=== PATIENT | male | born 1940 | race African-American/Black ===

== ENCOUNTER → 2019-01-11 | Outpatient (CLI) | payer OTHER ==
[~2019-01-11] VITALS: Ht 180.3 cm; Wt 70.3 kg
[~2019-01-11] MED LIST: ASPIR 8181 MG PO; IMDUR 30 MG TAB30 M1 PO; LIPITOR40 MG PO; SILDENAFIL CIT100 MG PO
--- NOTE | ~2019-01-11 | H ---
[facility] [place] [address] HISTORY AND PHYSICAL Name: AVILA SANTIAGO Room #: REG [facility]#: [id number] Admission: 01/11/19 ������������������ Attend Phys: Lavon Smith Discharge: ������������������ Date of : 44 Report #: [id number] THIS REPORT FOR: //name// CC: FAM unknown Lavon Smith DATE OF SERVICE: 01/11/2019 HISTORY OF PRESENT ILLNESS: This is a 78-year-old gentleman who has had chest discomfort for several years. The patient states the discomfort has progressed consistently over the last years and has gotten to the point where minimal activity brings it on. He has no rest symptomatology routinely, but over the last week, he has noted that he has had some discomfort that occurs at rest. He stated that while waiting in the office to be seen, he had some chest discomfort, but did not comment anybody. He remarks having had a low risk stress test approximately 8 years ago, but an abnormal calcium score around that time. He has not had any subsequent assessment of his chest discomfort. He describes it as retrosternal, sharp sensation initially, but it becomes a dull ache, lasting up to 20-30 minutes. It is associated with diaphoresis and dyspnea, but no nausea. He states it is brought on with activity and even on a flat level. Does not wake him up from sleep. He has no GI symptomatology with this. PHYSICAL EXAMINATION: GENERAL: Well-developed, well-nourished male, resting comfortably, in no acute distress. VITAL SIGNS: Noted and reviewed in the chart. HEENT: Normocephalic, atraumatic. Pupils are equal, round, reactive to light and accommodation. Extraocular muscles are intact. Sclerae and conjunctivae are anicteric. NECK: JVD is normal. Carotid upstrokes are bilaterally symmetrical. No bruits are heard. No thyromegaly. No lymphadenopathy. LUNGS: Clear to auscultation. No wheezes, rhonchi or crackles. No CVA tenderness. CARDIAC: Demonstrates a regular rhythm. Normal first and second heart sounds. No ventricular or atrial gallops, no rubs noted. No murmurs. No lifts or heaves, PMI normal. ABDOMEN: Soft, nontender, nondistended. Normal bowel sounds. EXTREMITIES: Without cyanosis, clubbing or edema. Distal pulses are intact. DTR symmetrical. NEUROLOGIC: Cranial nerves 2-12 are grossly normal and symmetrical. PSYCHIATRIC: Alert, oriented with normal affect. SKIN: Warm and dry. IMPRESSION: 1. Chest pain consistent with unstable angina and class 4 symptomatology. In view of his risk factors, abnormal calcium score, [place] [address] HISTORY AND PHYSICAL Name: PAMELAAVILA Britton Room #: YUSEF Walker#: [id number] Admission: 01/11/19 ������������������ Attend Phys: Lavon Smith Discharge: ������������������ Date of : 44 Report #: [id number] versus invasive approach. The patient is quite concerned with these episodes and wishes definitive diagnosis. In view of this, cardiac catheterization is scheduled. The risks, complications and alternatives to cardiac catheterization, conscious sedation, percutaneous revascularization been discussed with the patient. He voices understanding and wishes to proceed. ��������������������������������������������� ���������������������������������������� By: ��������������������������������������������� 0932 0950 Lavon Smith MD /nt
[2019-01-11 08:58] LABS: HEMATOCRIT 42.3 % (42.0-52.0); HEMOGLOBIN 13.9 gm/dL (14.0-18.0); MCH 29.6 pg (26.0-34.0); MCHC 32.9 g/dL (28.0-37.0); RBC 4.7 mil/uL (4.50-6.00); RDW 13.6 % (10.5-14.5); WBC 3.4 thou/uL (4.0-11.0)
[2019-01-11 09:10] VITALS: BP 135/82
[2019-01-11 10:20] LABS: POC CA IONIZED 4.6 mg/dL (4.5-5.3); POC CREATININE 0.9 mg/dL (0.6-1.3); POC HEMOGLOBIN 13.6 g/dL (14.0-18.0); POC POTASSIUM 4.2 mmol/L (3.5-5.1)
--- NOTE | 2019-01-11 13:09 | CATHLAB ---
[facility] [address] [place] [address] INVASIVE PROCEDURE REPORT Name: AVILA SANTIAGO [facility]: [facility] [id number] ������������� Admission: 01/11/19 ������������� Attend Phys: Lavon Gates Discharge: ��� ������������� ��� Date of : 44 �������������������� �� Report #: [id number] �������� ��������������������������������������������[id number] THIS REPORT FOR: //name// APPROVED REPORT Study performed: 01/11/2019 09:34:19 Patient Details Patient Status: Out-Patient Room #: The patient is a 78 year-old male Event Personnel Lavon Smith Digital Program Manager, Yoandy Briscoe RN, Tristan Darden RTR Scrub, Sofia Dorantes RTR Scrub, Chandra Matos RTR Monitor, Rozina Barajas RTR, DIALYSIS CHIEF EQUIPMENT TECHNICIAN Monitor Procedures Performed Art Access - R femoral artery* Left Heart Cath w/or w/o Coronaries [id number] [facility] [id number] Initial Mod Sed Same Phys/QHP Gr5y [id number] [id number] Mod Sed Same Phys/QHP Ea [id number] Hemostasis with Manual pressure, supervision of conscious sedation Indication Chest pain Procedure Narrative The was infiltrated with 1% Lidocaine subcutaneous anesthesia. A PINNACLE 4FR Sheath #[id number] sheath was inserted into the RFA^. Coronary angiography was performed using coronary diagnostic catheters. The right coronary system was accessed and visualized with a JR4 catheter. The left coronary system was accessed and visualized with a JL4 catheter. The left ventricle was accessed and visualized with a pigtail catheter. Left ventriculogram was performed in 30 degree projection. Hemostasis was obtained with manual pressure following sheath removal without any complications. The patient tolerated the procedure well and there were no complications associated with the procedure. There was no hematoma. Intraoperative Conscious Sedation Sedation start time: 10:04 Case end Time: 10:25 Versed 2 mg Fluoro Time: 3.04 minutes Dose: DAP 2543.10 cGycm2 363 mGy [facility] [place] [address] INVASIVE PROCEDURE REPORT Name: AVILA SANTIAGO Room #: REG [facility]#: [id number] ������������� Admission: 01/11/19 ������������� Attend Phys: aLvon Gates Discharge: ��� ������������� ��� Date of : 44 �������������������� �� Report #: [id number] �������� ��������������������������������������������[id number] Contrast Type and Amount: Omnipaque 70 ml Coronary Angiography The patient's coronary anatomy is right dominant. Diagnostic Cath Left Main Normal origin moderate caliber with mild luminal irregularities noted. Bifurcates left anterior descending left circumflex free of high-grade disease LAD Moderate caliber type III vessel which courses in the anterior interventricular sulcus. First diagonal branch arises just mild to moderate luminal irregularities through its course on the anterolateral wall. Is small in size. The LAD continues on with his irregularities of under 30-40% until the distal third with this and eccentric region of approximately 50-60%. The vessel diameter in this region appears to be less than 1.5 mm. Then continues posteriorly terminating posterior aspect of the left ventricle Diagonal 1 Small-caliber vessel with moderate lesions noted Circumflex Part caliber vessel which gives rise to an early marginal branches as luminal irregularities of less than 30-40% as it courses along the lateral aspect of the heart. The circumflex proper continues in the AV groove as a bifurcating marginal branch without significant high-grade lesions are noted. It then terminates small-caliber vessel the posterior aspect left ventricle OM1 Small to moderate caliber vessel bifurcating in its proximal third with luminal irregularities but no high-grade lesions OM2 Moderate caliber vessel trifurcating proximally and then coursing along the lateral vascular ventricle without significant high-grade lesions noted Right Coronary Moderate caliber vessel of normal origin courses in the AV groove giving rise to right atrial or ventricular branches. There is mildly irregular irregularities with a less than 40% proximal lesion. The vessel continues beyond the acute margin giving rise to small caliber posterior descending artery and terminating as a insignificant caliber posterior lateral branch. R PDA Small-caliber vessel without significant high-grade lesions. The vessel is less than 1 mm diameter throughout its entire course Left Ventriculography The left ventricle is normal in size with normal contractility. The left ventricular ejection fraction is estimated to be 60-65%. Left ventricular wall motion abnormalities are not present. [facility] [address] [place] [address] INVASIVE PROCEDURE REPORT Name: AVILA SANTIAGO Room #: REG [facility] Walker#: [id number] ������������� Admission: 01/11/19 ������������� Attend Phys: Lavon Gates Discharge: ��� ������������� ��� Date of : 44 �������������������� �� Report #: [id number] �������� ��������������������������������������������[id number] Hemodynamics The aortic pressure is 115/60 mmHg with a mean of 84 mmHg. The left ventricular pressure is 121/4 mmHg with a mean of mmHg. The left ventricular end diastolic pressure is 13 mmHg. Conclusion 1. Coronary disease mild nonobstructive 2. Normal left ventricular cavity size and contractility 3. Normal hemodynamics Recommendations Cardiac Risk Reduction Program Medical Therapy ��������������������������������������������� <ELECTRONICALLY SIGNED> ���������������������������������������� By: Lavon Smith MD ��������������������������������������������� 01/11/19 1309 1309 1309 Lavon Smith MD /INF
[2019-01-11 13:36] LABS: POTASSIUM 4.8 mmol/L (3.5-5.1)
--- NOTE | 2019-01-11 14:43 | 2DMMODE ---
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 Room #: 6 Status: routine BSA: 1.89 HR: 49 bpm BP: 120/70 mmHg Rhythm: Bradycardia Other Information Study Quality: Adequate Indications Chest Pain 2D Dimensions RVDd: 39.31 mm IVSd: 8.39 (7-11mm) LVOT Diam: 23.36 (18-24mm) LVDd: 54.08 mm PWd: 8.12 (7-11mm) Ascending Ao: 29.90 (22-36mm) LVDs: 33.68 (25-40mm) Aortic Root: 29.87 mm IVC: 14.00 mm Volumes Left Atrial Volume (Systole) Single Plane 4CH: 38.51 mL Single Plane 2CH: 49.97 mL LA ESV Index: 29.00 mL/m2 Aortic Valve AoV Peak Raj.: 1.30 m/s AO Peak Gr.: 6.79 mmHg LVOT Max P.52 mmHg LVOT Max V: 0.94 m/s ADRIANA Vmax: 3.09 cm2 Mitral Valve E/A Ratio: 1.5 MV Decel. Time: 223.33 ms MV E Max Raj.: 0.76 m/s [facility] [address] [place] [address] 2 D/M-MODE ECHOCARDIOGRAM Name: AVILA SANTIAGO Tobi Room #: REG [facility]#: [id number] ������������� Admission: 01/11/19 ������������� Attend Phys: Lavon Gates Discharge: ��� ������������� ��� Date of : 44 �������������������� �� Report #: [id number] �������� ��������������������������������������������[id number] MV A Raj.: 0.50 m/s MV PHT: 64.77 ms IVRT: 166.09 ms Pulmonary Valve PV Peak Raj.: 0.79 m/s PV Peak Gr.: 2.52 mmHg Pulmonary Vein P Vein S: 0.48 m/s P Vein A: 0.21 m/s P Vein D: 0.44 m/s P Vein A Dur.: 110.7 msec P Vein S/D Ratio: 1.09 Tricuspid Valve TR Peak Raj.: 1.95 m/s TR Peak Gr.: 15.20 mmHg PA Pressure: 20.00 mmHg Left Ventricle The left ventricle is normal size. There is normal LV segmental wall motion. There is normal left ventricular wall thickness. Left ventricular systolic function is normal. The left ventricular ejection fraction is within the normal range. LVEF is 55-60%. The left ventricular diastolic function is normal. Right Ventricle The right ventricle is normal size. The right ventricular systolic function is normal. Atria The left atrium size is normal. The right atrium size is normal. Aortic Valve The aortic valve is normal in structure. Aortic valve is calcified. No aortic regurgitation is present. There is no aortic valvular stenosis. Mitral Valve The mitral valve is normal in structure. Trace to mild mitral regurgitation. No evidence of mitral valve stenosis. Tricuspid Valve The tricuspid valve is normal in structure. There is trace tricuspid regurgitation. Estimated PAP 20 mmHg. There is no pulmonary hypertension. [facility] [address] [place] [address] 2 D/M-MODE ECHOCARDIOGRAM Name: PAMELAAVILA VANG Tobi Room #: REG [facility]#: [id number] ������������� Admission: 01/11/19 ������������� Attend Phys: Lavon Gates Discharge: ��� ������������� ��� Date of : 44 �������������������� �� Report #: [id number] �������� ��������������������������������������������[id number] Pulmonic Valve The pulmonary valve is normal in structure. There is no pulmonic valvular regurgitation. Great Vessels The aortic root is normal in size. IVC is normal in size and collapses >50% with inspiration. Pericardium There is no pericardial effusion. <Conclusion> The left ventricle is normal size. LVEF is 55-60%. The aortic valve is normal in structure. Aortic valve is calcified. The mitral valve is normal in structure. Trace to mild mitral regurgitation. The tricuspid valve is normal in structure. There is trace tricuspid regurgitation. Estimated PAP 20 mmHg. There is no pulmonary hypertension. The pulmonary valve is normal in structure. There is no pericardial effusion. ��������������������������������������������� <ELECTRONICALLY SIGNED> ���������������������������������������� By: Lavon Smith MD ��������������������������������������������� 01/11/19 1443 1443 144 Lavon Smith MD /INF
--- NOTE | 2019-01-12 11:45 | EKG ---
[address] [address] ELECTROCARDIOGRAM REPORT Name: AVILA SANTIAGO [facility] [id number] ������������������ Admission: 01/11/19 ������������������ Attend Phys: Lavon Smith Discharge: ������������������ Date of : 44 Report #: [id number] ����������������������������������������������������������������� [id number] THIS REPORT FOR: //name// [facility] Test Date: 2019-01-11 Test Time: 08:48:47 Pat Name: AVILA SANTIAGO Department: Room: Gender: Content Specialist: Cisco SPRAGUE : 1940 Requested By: Lavon Smith Order Number: [id number] MD: Ramón Lagos Measurements Intervals [place] Rate: 51 P: 58 [place]: 194 QRS: 12 QRSD: 102 T: 30 QT: 440 QTc: 406 Interpretive Statements Sinus bradycardia RSR' in V1 or V2, probably normal variant No previous ECG available for comparison Electronically Signed On 01-12-2019 11:45:14 CDT by Ramón Lagos [email or web address] ��������������������������������������������� <ELECTRONICALLY SIGNED> ���������������������������������������� By: Ramón Lagos MD, [facility] ��������������������������������������������� 01/12/19 1145 0848 08 Ramón Lagos MD, FACC /EPI
== END | disposition home or self-care (01) ==
LOC: CATH 08:19
PROVIDERS: Internal Medicine
DX: R07.9 Chest pain, unspecified (principal); I25.110 Atherosclerotic heart disease of native coronary artery with unstable angina pectoris; I08.1 Rheumatic disorders of both mitral and tricuspid valves; E11.9 Type 2 diabetes mellitus without complications; E78.5 Hyperlipidemia, unspecified; G47.00 Insomnia, unspecified; Z79.82 Long term (current) use of aspirin; Z85.46 Personal history of malignant neoplasm of prostate; Z79.899 Other long term (current) drug therapy; Z98.890 Other specified postprocedural states